=== PATIENT | female | born 1995 | race Caucasian/White ===

== ENCOUNTER → 2021-03-01 16:00 | Outpatient (BNVA) | payer MEDICAID, SELFPAY | PROVIDERS: Family Provider Nurse Practitioner Family; PCP Nurse Practitioner Family; Visit Provider Obstetrics & Gynecology | DX: Z01.419 Encounter for gynecological examination (general) (routine) without abnormal findings (principal) | CPT/HCPCS: 88175 ==

== ENCOUNTER → 2021-12-13 08:15 | Outpatient (BNVA) | payer MEDICAID, SELFPAY | PROVIDERS: PCP Nurse Practitioner Family; Visit Provider Internal Medicine | DX: M05.20 Rheumatoid vasculitis with rheumatoid arthritis of unspecified site (principal); R76.8 Other specified abnormal immunological findings in serum; R79.82 Elevated C-reactive protein (CRP); M79.10 Myalgia, unspecified site; Z11.59 Encounter for screening for other viral diseases; R53.83 Other fatigue; M35.7 Hypermobility syndrome | CPT/HCPCS: 99204 ==

== ENCOUNTER 2021-12-13 10:31 | Outpatient (CLI) | payer MEDICAID, SELFPAY ==
--- NOTE | 2021-12-13 11:17 | XR_ITS ---
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 Comparison: None. Findings: No fractures or dislocations are seen. The soft tissues are unremarkable. The joint space s are normal No periarticular demineralization or calcifications are seen. XR/XR hand RT 2V [id number] Impression: Negative right hand.
--- NOTE | 2021-12-13 11:17 | XR_ITS ---
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 Comparison: None. Findings: No fractures or dislocations are seen. The soft tissues are unremarkable. The joint spaces are normal No periarticular demineralization or calcifications are seen. XR/XR hand LT 2V [id number] Impression: Negative left hand.
[2021-12-13 12:42] LABS: Creatine Phosphokinase 39 U/L (26-192); Magnesium 1.9 mg/dL (1.7-2.3); Phosphorus 3.4 mg/dL (2.5-4.5)
[2021-12-13 12:57] LABS: Vitamin B12 985 pg/mL (232-1245)
[2021-12-13 12:59] LABS: Hepatitis B Core AB, Total Non-Reactive (Nonreactive); Hepatitis B Surface Antigen Non-Reactive (Nonreactive); Hepatitis C Virus Antibody Non-Reactive (Nonreactive)
[2021-12-14 14:23] LABS: Cyclic Citrullinated Peptide >250 UNITS
[2021-12-14 15:18] LABS: Lymes IGG WB <0.90 index
== END 2021-12-13 10:32 | disposition home or self-care (01) ==
LOC: RAD 10:34
PROVIDERS: PCP Internal Medicine; Visit Provider Internal Medicine
DX: M05.20 Rheumatoid vasculitis with rheumatoid arthritis of unspecified site (principal)
CPT/HCPCS: 36415; 73120; 82550; 82607; 83516; 83735; 84100; 84182; 86200; 86235; 86617; 86704; 86803; 87340

== ENCOUNTER → 2021-12-27 14:02 | Outpatient (BNVA) | payer MEDICAID, SELFPAY | PROVIDERS: PCP Internal Medicine; Visit Provider Internal Medicine | DX: R76.8 Other specified abnormal immunological findings in serum (principal); M05.20 Rheumatoid vasculitis with rheumatoid arthritis of unspecified site; M35.7 Hypermobility syndrome; R79.82 Elevated C-reactive protein (CRP) | CPT/HCPCS: 99214 ==

== ENCOUNTER → 2022-01-09 15:37 | Outpatient (BNVA) | payer MEDICAID, SELFPAY | PROVIDERS: PCP Internal Medicine; Visit Provider Obstetrics & Gynecology | DX: R87.610 Atypical squamous cells of undetermined significance on cytologic smear of cervix (ASC-US) (principal); R87.810 Cervical high risk human papillomavirus (HPV) DNA test positive; N84.1 Polyp of cervix uteri | CPT/HCPCS: 81025; 88305 ==

== ENCOUNTER → 2022-01-24 14:56 | Outpatient (BNVA) | payer MEDICAID, SELFPAY | PROVIDERS: PCP Internal Medicine; Visit Provider Obstetrics & Gynecology | DX: R87.610 Atypical squamous cells of undetermined significance on cytologic smear of cervix (ASC-US) (principal); R87.810 Cervical high risk human papillomavirus (HPV) DNA test positive | CPT/HCPCS: 81025; 88305 ==

== ENCOUNTER → 2022-02-13 16:11 | Outpatient (BNVA) | payer MEDICAID, SELFPAY | PROVIDERS: PCP Internal Medicine; Visit Provider Internal Medicine | DX: R79.82 Elevated C-reactive protein (CRP) (principal); G47.30 Sleep apnea, unspecified; R76.8 Other specified abnormal immunological findings in serum; M35.7 Hypermobility syndrome; M05.20 Rheumatoid vasculitis with rheumatoid arthritis of unspecified site; R68.84 Jaw pain; R53.83 Other fatigue | CPT/HCPCS: 80053; 82728; 83540; 84443; 85025; 86480; 99214 ==

== ENCOUNTER → 2022-02-14 10:45 | Outpatient (BNVA) | payer OTHER, SELFPAY | PROVIDERS: PCP Internal Medicine; Visit Provider Social Worker | DX: F43.12 Post-traumatic stress disorder, chronic (principal) | CPT/HCPCS: 90834 ==

== ENCOUNTER → 2022-02-20 15:55 | Outpatient (BNVA) | payer MEDICAID, SELFPAY | PROVIDERS: PCP Internal Medicine; Referring Provider Psychiatry & Neurology Psychiatry; Visit Provider Otolaryngology | DX: H61.22 Impacted cerumen, left ear (principal); M26.623 Arthralgia of bilateral temporomandibular joint; J33.0 Polyp of nasal cavity; J34.89 Other specified disorders of nose and nasal sinuses; J30.9 Allergic rhinitis, unspecified | CPT/HCPCS: 69210; 99204 ==

== ENCOUNTER → 2022-02-21 12:00 | Outpatient (BNVA) | payer OTHER, SELFPAY | PROVIDERS: PCP Internal Medicine; Visit Provider Social Worker | DX: F43.12 Post-traumatic stress disorder, chronic (principal) | CPT/HCPCS: 90834 ==

== ENCOUNTER → 2022-03-07 13:40 | Outpatient (BNVA) | payer OTHER, SELFPAY | PROVIDERS: PCP Internal Medicine; Visit Provider Social Worker | DX: F43.12 Post-traumatic stress disorder, chronic (principal) | CPT/HCPCS: 90834 ==

== ENCOUNTER → 2022-03-14 08:56 | Outpatient (BNVA) | payer MEDICAID, SELFPAY | PROVIDERS: PCP Internal Medicine; Visit Provider Otolaryngology | DX: F43.12 Post-traumatic stress disorder, chronic (principal); J33.9 Nasal polyp, unspecified | CPT/HCPCS: 90834; 99213 ==

== ENCOUNTER → 2022-03-21 11:46 | Outpatient (BNVA) | payer OTHER, SELFPAY | PROVIDERS: PCP Internal Medicine; Visit Provider Social Worker | DX: F43.12 Post-traumatic stress disorder, chronic (principal); F33.2 Major depressive disorder, recurrent severe without psychotic features | CPT/HCPCS: 90791 ==

== ENCOUNTER 2022-03-26 20:00 | Outpatient (CLI) | payer OTHER, SELFPAY | END 2022-03-26 20:01 | disposition home or self-care (01) | LOC: SLEEP 03-27 08:15 | PROVIDERS: PCP Internal Medicine; Visit Provider Family Medicine | DX: G47.10 Hypersomnia, unspecified (principal); R06.83 Snoring; R53.83 Other fatigue | CPT/HCPCS: 95810 ==

== ENCOUNTER → 2022-03-29 12:43 | Outpatient (BNVA) | payer OTHER, SELFPAY | PROVIDERS: PCP Internal Medicine; Visit Provider Social Worker | DX: F43.12 Post-traumatic stress disorder, chronic (principal) | CPT/HCPCS: 90837; 90834 ==

== ENCOUNTER 2022-06-16 21:16 | Emergency (ER) | payer MEDICAID, SELFPAY ==
[2022-06-16 21:18] VITALS: PULSE 89; RESP 16; TEMP 36.8; O2SAT 95; BMI 33.3
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
[2022-06-16] MEDS: acetaminophen 500 mg Tablet 1000 MG PO (23:14)
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
== END 2022-06-17 00:15 | disposition home or self-care (01) ==
PROVIDERS: Emergency Provider Emergency Medicine; PCP Internal Medicine
DX: S93.401A Sprain of unspecified ligament of right ankle, initial encounter (principal); S96.911A Strain of unspecified muscle and tendon at ankle and foot level, right foot, initial encounter; S50.811A Abrasion of right forearm, initial encounter; V89.2XXA Person injured in unspecified motor-vehicle accident, traffic, initial encounter
CPT/HCPCS: 73610; 99283; E0114

== ENCOUNTER → 2022-06-20 13:48 | Outpatient (BNVA) | payer MEDICAID, SELFPAY | PROVIDERS: PCP Family Medicine; Visit Provider Internal Medicine | DX: M05.20 Rheumatoid vasculitis with rheumatoid arthritis of unspecified site (principal); M35.7 Hypermobility syndrome; R76.8 Other specified abnormal immunological findings in serum; R53.83 Other fatigue; R79.82 Elevated C-reactive protein (CRP) | CPT/HCPCS: 80053; 85025; 85651; 86140; 99214 ==

== ENCOUNTER 2022-07-19 08:49 | Outpatient (CLI) | payer MEDICAID, SELFPAY ==
--- NOTE | 2022-07-19 | XR_ITS ---
WS: [id number] Left foot, 2 views, 07/19/2022 Clinical Data: left foot pain Comparison: None. Findings: There is a fracture of the base of the proximal phalanx of the left fifth toe. The remainder the foot shows no other fractures. The joint spaces are normal. The soft tissues are un remarkable. XR/XR foot LT 2V [id number] Impression: Fracture of the proximal phalanx of the left fifth toe.
== END 2022-07-19 08:50 | disposition home or self-care (01) ==
LOC: RAD 08:51
PROVIDERS: PCP Family Medicine; Visit Provider Family Medicine
DX: S92.512A Displaced fracture of proximal phalanx of left lesser toe(s), initial encounter for closed fracture; X58.XXXA Exposure to other specified factors, initial encounter
CPT/HCPCS: 73620

== ENCOUNTER 2022-07-28 17:14 | Emergency (ER) | payer MEDICAID, SELFPAY ==
[2022-07-28 17:17] VITALS: BP 114/80; PULSE 75; RESP 15; TEMP 36.8; O2SAT 98; BMI 32.9
[2022-07-28 17:22] VITALS: BP 115/85; PULSE 79; RESP 16; TEMP 36.6; O2SAT 99
--- NOTE | 2022-07-28 17:33 | ED_ITS ---
HPI - Dizziness General: Chief Complaint: Dizziness Stated Complaint: Dizziness Time Seen by Provider: 07/28/22 17:33 History of Present Illness: HPI Narrative: 27-year-old female comes in today for complaints of dizziness. Patient reports that this afternoon she was at a restaurant getting a salad at the salad bar walking around when she became dizzy and lightheaded. Patient then reported having a headache. Patient appears nontoxic. Patient appears in no pain. Patient denies any blood in vomit or stool. Patient denies any fever. Patient has a history of rheumatoid arthritis and is presently on her menstrual cycle. Associated symptoms: Reports headache(s) and nausea; Denies chest pain Review of Systems General: Reports: 10 or more systems reviewed and unremarkable except in HPI and below Const: Denies: fever(s) Card: Denies: chest pain Resp: Denies: dyspnea GI: Reports: nausea Neuro: Reports: headache(s) and dizziness Tomer/Lymph: Denies: easy bruising or easy bleeding PFSH ED PFSH: Medical History No pertinent past medical history Denies diabetes, asthma, hypertension, seizures, DVT/PE PCP: MY Mosley Rheumatoid arteritis /Mixed connective tissue disorder----diagnosed in December 2021 and she is under the care of porcelain turner Dr. Riggins at [facility] Surgical History S/P section 11/16/2017-----> primary delivery for arrest of dilation at 6 cm, baby ning Enrique, weighing 8 pounds 15-1/2 ounces. Prominent sacral premonitory, inferior extension---Not a good CHARLIE candidate Family History Family/Other Thyroid condition paternal cousin Diabetes paternal aunt Father Hypertension Hyperlipidemia Grandmother Hypertension paternal Stroke maternal Diabetes paternal Grandfather Stroke maternal Denies family history of Colon cancer Ovarian cancer Heart disease Breast cancer Uterine cancer Social History Smoking and tobacco status: never smoked Female Reproductive History: Date of last menstrual period: 05/29/22 Physical Exam Const: COMMON NORMALS: alert HENMT: COMMON NORMALS: normocephalic HEAD & SCALP: normocephalic MOUTH: Normal oral and palatal mucosa present Neck/C-Spine: COMMON NORMALS: full ROM and no meningeal signs Resp: COMMON NORMALS: normal respiratory effort and clear to auscultation bilaterally AUSCULTATION: clear to auscultation bilaterally Cardio: COMMON NORMALS: regular rate and regular rhythm RATE: regular rate RHYTHM: regular rhythm GI: COMMON NORMALS: non-tender Back/Pelvis: COMMON NORMALS: thoracic and lumbar spine normal to inspection Extremity: COMMON NORMALS: no pedal edema Neuro: SENSORIUM/ORIENTATION: Yes alert MENINGEAL SIGNS: Yes no meningeal signs Skin: COMMON NORMALS: turgor normal GENERAL SKIN EXAM: turgor normal Course Vital Signs: Vital signs: Vital Signs Temperature 97.8 F 07/28/22 17:22 Pulse Rate 74 07/28/22 17:45 Respiratory Rate 16 07/28/22 17:22 Blood Pressure 122/67 07/28/22 17:45 Pulse Oximetry 100 07/28/22 17:35 Oxygen Delivery Me thod 07/28/22 17:22 MDM - Dizziness Medical Decision Making 27-year-old female comes in today for complaints of dizziness that occurred when she got up to go get a salad in a restaurant. Patient appears nontoxic. Patient reports improvement of symptoms since arriving to the ER. Vital signs are normal. Negative orthostatic blood pressures. Differential diagnosis includes BPV, anxiety, adverse drug effect, anemia. CBC CMP was unremarkable. CT of the head was normal. EKG showed no significant abnormalities. Believe the patient probably had some mild positional vertigo secondary to probably her medication she takes routinely for her RA. Patient was recommended to monitor for fever or worsening symptoms. Patient reported understanding and agreed to plan. Lab Data : 07/28/22 17:53 07/28/22 17:[address] 07/28/22 17:50 IMPRESSION: 1. No acute intracranial abnormality. 2. Probably chronic pansinusitis with enlargement of the nasal turbinates and erosion of the lamina papyracea bilaterally. Laboratory Results WBC 9.7 10^3/uL (4.0-10.0) 07/28/22 17:53 RBC 4.43 10^6/uL (4.1-5.3) 07/28/22 17:53 Hgb 12.6 g/dL (11.5-15.3) 07/28/22 17:53 Hct 38.2 % (37.0-47.0) 07/28/22 17:53 MCV 86.2 fl (81-99) 07/28/22 17:53 MCH 28.4 pg (28.0-34.0) 07/28/22 17:53 MCHC 33.0 g/dL (30.0-36.0) 07/28/22 17:53 RDW 14.2 % (12.1-15.1) 07/28/22 17:53 Plt Count 318 10^3/cmm (130-400) 07/28/22 17:53 MPV 10.8 fL (7.4-10.4) H 07/28/22 17:53 Neut % (Auto) 66.3 % 07/28/22 17:53 Lymph % (Auto) 25.6 % 07/28/22 17:53 [place] % (Auto) 5.3 % 07/28/22 17:53 Eos % (Auto) 1.7 % 07/28/22 17:53 Baso % (Auto) 0.5 % 07/28/22 17:53 Neut # (Auto) 6.40 10^3/uL (1.8-7.7) 07/28/22 17:53 Lymph # (Auto) 2.5 10^3/uL (0.8-4.8) 07/28/22 17:53 [place] # (Auto) 0.5 10^3/uL (0.2-0.9) 07/28/22 17:53 Eos # (Auto) 0.2 10^3/uL (0.0-0.8) 07/28/22 17:53 Baso # (Auto) 0.1 10^3/uL (0.0-0.1) 07/28/22 17:53 Nucleated RBC % (auto) 0 % 07/28/22 17:53 Nucleated RBCs # 0.0 /100WBC 07/28/22 17:53 Sodium 133 mmol/L (136-145) L 07/28/22 17:53 Potassium 3.7 mmol/L (3.5-5.1) 07/28/22 17:53 Chloride 101 mmol/L (98-107) 07/28/22 17:53 Carbon Dioxide 24 mmol/L (22-29) 07/28/22 17:53 Anion Gap 11.7 (5-19) 07/28/22 17:53 BUN 13 mg/dL (6-20) 07/28/22 17:53 Creatinine 0.6 mg/dL (0.5-0.9) 07/28/22 17:53 GFR Calculation 119.9 mL/min (90-130) 07/28/22 17:53 Glucose 83 mg/dL (65-115) 07/28/22 17:53 Calculated Osmolality 275 mOsm/kg (285-295) L 07/28/22 17:53 Calcium 8.9 mg/dL (8.5-10.5) 07/28/22 17:53 Total Bilirubin 0.2 mg/dL (0.15-1.2) 07/28/22 17:53 AST 16 U/L (0-32) 07/28/22 17:53 ALT 14 U/L (0-33) 07/28/22 17:53 Alkaline Phosphatase 86 U/L (35-105) 07/28/22 17:53 Total Protein 7.3 g/dL (6.6-8.7) 07/28/22 17:53 Albumin 3.8 g/dL (3.5-5.2) 07/28/22 17:53 Globulin 3.5 g/dL (1.3-4.6) 07/28/22 17:53 Lipase 17 U/L (13-60) 07/28/22 17:53 HCG, Qual Negative (Negative) 07/28/22 18:06 Urine Color Light yellow (Yellow) 07/28/22 19:35 Urine Appearance Clear (CLEAR) 07/28/22 19:35 Urine pH 7 (5-7) 07/28/22 19:35 Ur Specific [place] 1.005 (1.005-1.030) 07/28/22 19:35 Urine Protein Neg (Negative) 07/28/22 19:35 Urine Glucose (UA) Norm (Normal) 07/28/22 19:35 Urine Ketones Negative (Negative) 07/28/22 19:35 Urine Blood Trace (Negative) H 07/28/22 19:35 Urine Nitrate Negative (Negative) 07/28/22 19:35 Urine Bilirubin Neg (Negative) 07/28/22 19:35 Urine Urobilinogen Neg mg/dL (Negative) 07/28/22 19:35 Ur Leukocyte Esterase Negative (Negative) 07/28/22 19:35 Amorphous Sediment Not Reportable 07/28/22 19:35 EKG Data EKG 1: EKG interpretation date: 07/28/22 EKG interpretation time: 17:53 Prior EKG tracings: not available for review Interpretation: EKG shows a sinus rhythm with a regular rate at [address] elevation or ectopy was noted on the exam. Discharge Plan Discharge Patient Disposition: Home Clinical Impression: Benign paroxysmal positional vertigo Qualifiers: Laterality: unspecified laterality Qualified Code(s): H81.10 - Benign paroxysmal vertigo, unspecified ear Condition: Stable Prescriptions: No Action Zyrtec 10 mg capsule 10 mg PO DAILY acetaminophen [Tylenol Extra Strength] 500 mg tablet 500 mg PO BID PRN ashwaganda PO turmeric 400 mg capsule PO as-2-yyc-epa-fish oil-vit D3 [[place]-3 + Vitamin D3] PO collagen pep PO Hair,Skin and Nails Tablet 1 tab PO DAILY norethindrone-e.estradiol-iron [Junel FE 10/26 (28)] 1 mg-20 mcg (21)/75 mg (7) tablet 1 tab PO DAILY Qty: 84 0RF folic acid 1 mg tablet 1 mg PO DAILY Qty: 90 1RF meloxicam 15 mg tablet 15 mg PO DAILY Qty: 30 3RF hydroxychloroquine 200 mg tablet 200 mg PO BID Qty: 60 3RF prednisone 5 mg tablet 5 mg PO DAILY PRN (Reason: flares) Qty: 60 0RF Rx Instructions: 1-2 as needed Xeljanz XR 11 mg tablet extended release 24 hr 11 mg PO DAILY Qty: 30 5RF Discharge Orders: Discharge ED (Routine); Ordered 07/28/22 Ordered By: Jossue Nayak Referrals: Albania Rivers DO [Primary Care Provider] - Discharge Diet: Usual diet Discharge Activity: Increase activity as tolerated Patient Instructions: Dizziness (ED) Activity Restrictions/Additional Instructions: Drink plenty of fluids. Change positions slowly. Follow-up with primary care for further evaluation and treatment. Return to ER for new concerns or worsening symptoms such as inability to hold fluids down, blood in vomit or stool, or fever greater than 100.4. Coding Level of Care Code ED Computer Operations Supervisor for Chg Fwd Exam Comprehensive
[2022-07-28 17:35] VITALS: BP 115/85; PULSE 82; O2SAT 100
[2022-07-28 17:45] VITALS: BP 116/76; BP 122/67; BP 122/83; PULSE 74; PULSE 83; PULSE 86
--- NOTE | 2022-07-28 17:47 | ECG_ITS ---
[facility] Test Date: 2022-07-28 Pat Name: Carlene Guevara Department: Room: Gender: Female Base Draw Operator: : 1995 Requested By: Jossue Jara Order Number: [id number] Liv MD: Massiel Garrison M.D. Measurements Intervals [place] Rate: 78 P: 24 ME: 136 QRS: -16 QRSD: 94 T: 32 QT: 388 QTc: 443 Interpretive Statements SINUS RHYTHM LOW QRS VOLTAGE IN PRECORDIAL LEADS [QRS DEFLECTION < 1.0 mV IN CHEST LEADS] No previous ECG available for comparison Electronically Signed On 07-30-2022 23:00:41 CDT by Massiel Garrison M.D. [id number]
--- NOTE | 2022-07-28 17:50 | CTR_ITS ---
PROCEDURE INFORMATION: Exam: CT Head Without Contrast Exam date and time: 07/28/2022 6:06 PM Age: 27 years old Clinical indication: Pain; Headache not specified; Additional info: Headache, dizziness TECHNIQUE: Imaging protocol: Computed tomography of the head without contrast. Radiation optimization: All CT scans at this facility use at least one of these dose optimization techniques: automated exposure control; mA and/or kV adjustment per patient size (includes targeted exams where dose is matched to clinical indication); or iterative reconstruction. COMPARISON: No relevant prior studies available. RADIATION DOSE METRICS: Total DLP (mGy-cm): 1069.68 FINDINGS: Brain: The brain is unremarkable. There is no mass effect or significant white matter disease. There is no acute intracranial hemorrhage. Cerebral ventricles: There is no significant ventricular dilation. The basal cisterns are unremarkable. Paranasal sinuses: There is near complete opacification of the visualized paranasal sinuses and enlargement of the nasal turbinates with dehiscence of the anterior aspect of the medial orbital mancuso bilaterally. Mastoid air cells: The mastoid air cells are clear. Orbital cavities: Globes are intact. Orbital contents are normal. Bones/joints: The calvarium is intact. Soft tissues: The visible extracranial soft tissues are unremarkable. CT/CT head wo con* [id number] IMPRESSION: 1. No acute intracranial abnormality. 2. Probably chronic pansinusitis with enlargement of the nasal turbinates and erosion of the lamina papyracea bilaterally.
[2022-07-28 18:02] LABS: Basophils # 0.1 10^3/uL (0.0-0.1); Basophils % 0.5 %; Eosinophils # 0.2 10^3/uL (0.0-0.8); Eosinophils % 1.7 %; Hematocrit 38.2 % (37.0-47.0); Hemoglobin 12.6 g/dL (11.5-15.3); Lymphocytes # 2.5 10^3/uL (0.8-4.8); Lymphocytes % 25.6 %; Mean Corpuscular Hemoglobin 28.4 pg (28.0-34.0); Mean Corpuscular Volume 86.2 fl (81-99); Mean Platelet Volume 10.8 fL (7.4-10.4); Monocytes # 0.5 10^3/uL (0.2-0.9); Monocytes % 5.3 %; Neutrophils % 66.3 %; Nucleated Red Blood Cells % 0 %; Platelet Count 318 10^3/cmm (130-400); Red Blood Count 4.43 10^6/uL (4.1-5.3); Red Cell Distribution Width 14.2 % (12.1-15.1); White Blood Count 9.7 10^3/uL (4.0-10.0)
[2022-07-28 18:33] LABS: Alanine Aminotransferase 14 U/L (0-33); Albumin Level 3.8 g/dL (3.5-5.2); Alkaline Phosphatase 86 U/L (35-105); Anion Gap 11.7 (5-19); Aspartate Amino Transferase 16 U/L (0-32); Blood Urea Nitrogen 13 mg/dL (6-20); Calcium 8.9 mg/dL (8.5-10.5); Carbon Dioxide 24 mmol/L (22-29); Chloride 101 mmol/L (98-107); Globulin 3.5 g/dL (1.3-4.6); Glomerular Filtration Rate 119.9 mL/min (90-130); Glucose 83 mg/dL (65-115); Lipase 17 U/L (13-60); Osmolality Calculated 275 mOsm/kg (285-295); Potassium 3.7 mmol/L (3.5-5.1); Sodium 133 mmol/L (136-145); Total Bilirubin 0.2 mg/dL (0.15-1.2); Total Protein 7.3 g/dL (6.6-8.7)
[2022-07-28 18:35] LABS: HCG, Serum Qual Negative (Negative)
--- NOTE | 2022-07-28 19:09 | PC.NURSE ---
Report given to XENIA Gustafson to assume care
[2022-07-28 19:39] LABS: Add Urine Microscopic? YES; Bilirubin Urine Neg (Negative); Blood Urine Trace (Negative); Glucose Urine UA Norm (Normal); Ketones Urine Negative (Negative); Leukocyte Esterase Urine Negative (Negative); Nitrate Urine Negative (Negative); Protein Urine Neg (Negative); Specific Gravity, Urine 1.005 (1.005-1.030); Urine Appearance Clear (CLEAR); Urine Color Light Yellow (Yellow); Urobilinogen Urine Neg (Negative); pH Urine 7 (5-7)
[2022-07-28 19:59] VITALS: BP 108/71; PULSE 71; RESP 18; O2SAT 97
[2022-07-28 19:59] LABS: Add Urine Culture? No; RBC Urine 0-4 /hpf (0-2); Squamous Epithelial Cell Urine 0-4 /hpf (0-5); WBC Urine 0-4 /hpf (0-5)
== END 2022-07-28 20:00 | disposition home or self-care (01) ==
PROVIDERS: Emergency Provider Nurse Practitioner Family; PCP Family Medicine
DX: H81.10 Benign paroxysmal vertigo, unspecified ear (principal)
CPT/HCPCS: 70450; 80053; 81001; 83690; 84703; 85025; 93005; 99285

== ENCOUNTER → 2022-10-05 09:00 | Outpatient (BNVA) | payer MEDICAID, SELFPAY | PROVIDERS: PCP Family Medicine; Visit Provider Obstetrics & Gynecology | DX: N92.6 Irregular menstruation, unspecified (principal) | CPT/HCPCS: 83036; 83525; 84443 ==

== ENCOUNTER → 2022-10-12 09:45 | Outpatient (BNVA) | payer MEDICAID, SELFPAY | PROVIDERS: PCP Family Medicine; Visit Provider Internal Medicine | DX: M05.20 Rheumatoid vasculitis with rheumatoid arthritis of unspecified site (principal); M77.40 Metatarsalgia, unspecified foot; M35.7 Hypermobility syndrome; R79.82 Elevated C-reactive protein (CRP); R76.8 Other specified abnormal immunological findings in serum | CPT/HCPCS: 36415; 85025; 85651; 86140 ==

== ENCOUNTER → 2022-11-21 08:48 | Outpatient (BNVA) | payer OTHER, SELFPAY | PROVIDERS: PCP Family Medicine; Visit Provider Podiatrist Foot & Ankle Surgery | DX: M79.671 Pain in right foot (principal); M79.672 Pain in left foot | CPT/HCPCS: 73630 ==

== ENCOUNTER → 2022-12-06 07:24 | Outpatient (BNVA) | payer OTHER, SELFPAY | PROVIDERS: PCP Family Medicine; Visit Provider Nurse Practitioner Women's Health | DX: Z34.90 Encounter for supervision of normal pregnancy, unspecified, unspecified trimester (principal) | CPT/HCPCS: 81000; 81025; 87086 ==

== ENCOUNTER → 2022-12-12 09:20 | Outpatient (BNVA) | payer MEDICAID, SELFPAY | PROVIDERS: PCP Family Medicine; Visit Provider Nurse Practitioner Women's Health | DX: Z34.90 Encounter for supervision of normal pregnancy, unspecified, unspecified trimester (principal); Z98.891 History of uterine scar from previous surgery | CPT/HCPCS: 80307; 84315; 84443; 85027; 86592; 86762; 86803; 86850; 86900; 87086; 87340; 87806 ==

== ENCOUNTER → 2022-12-26 13:50 | Outpatient (BNVA) | payer MEDICAID, SELFPAY | PROVIDERS: PCP Family Medicine; Visit Provider Obstetrics & Gynecology | DX: Z34.90 Encounter for supervision of normal pregnancy, unspecified, unspecified trimester (principal); R82.90 Unspecified abnormal findings in urine | CPT/HCPCS: 84315; 87086 ==

== ENCOUNTER → 2023-01-09 13:45 | Outpatient (BNVA) | payer MEDICAID, SELFPAY | PROVIDERS: PCP Family Medicine; Visit Provider Obstetrics & Gynecology | DX: Z34.90 Encounter for supervision of normal pregnancy, unspecified, unspecified trimester (principal) | CPT/HCPCS: 84315; 87086; 87491; 87591; 87624; 87661 ==

== ENCOUNTER → 2023-02-07 10:40 | Outpatient (BNVA) | payer OTHER, SELFPAY | PROVIDERS: PCP Family Medicine; Visit Provider Obstetrics & Gynecology | DX: Z34.90 Encounter for supervision of normal pregnancy, unspecified, unspecified trimester (principal); R82.90 Unspecified abnormal findings in urine | CPT/HCPCS: 80307; 81000; 87086 ==

== ENCOUNTER 2023-02-28 10:54 | Outpatient (CLI) | payer MEDICAID, SELFPAY ==
[2023-02-28 11:29] LABS: Basophils # 0.1 10^3/uL (0.0-0.1); Basophils % 0.3 %; Eosinophils # 0.2 10^3/uL (0.0-0.8); Eosinophils % 1.6 %; Hematocrit 36.3 % (37.0-47.0); Hemoglobin 12.2 g/dL (11.5-15.3); Lymphocytes # 1.7 10^3/uL (0.8-4.8); Lymphocytes % 11.8 %; Mean Corpuscular HGB Conc 33.6 g/dL (30.0-36.0); Mean Corpuscular Hemoglobin 29.3 pg (28.0-34.0); Mean Corpuscular Volume 87.3 fl (81-99); Mean Platelet Volume 10.2 fL (7.4-10.4); Monocytes # 0.7 10^3/uL (0.2-0.9); Monocytes % 4.8 %; Neutrophils # 11.64 10^3/uL (1.8-7.7); Neutrophils % 80.3 %; Nucleated Red Blood Cells % 0 %; Platelet Count 306 10^3/cmm (130-400); Red Blood Count 4.16 10^6/uL (4.1-5.3); Red Cell Distribution Width 13.5 % (12.1-15.1); White Blood Count 14.5 10^3/uL (4.0-10.0)
[2023-02-28 11:46] LABS: Alanine Aminotransferase 7 U/L (0-33); Albumin Level 3.4 g/dL (3.5-5.2); Alkaline Phosphatase 69 U/L (35-105); Anion Gap 13.5 (5-19); Aspartate Amino Transferase 10 U/L (0-32); Blood Urea Nitrogen 7 mg/dL (6-20); Carbon Dioxide 22 mmol/L (22-29); Chloride 104 mmol/L (98-107); Globulin 3.4 g/dL (1.3-4.6); Glomerular Filtration Rate 146.9 mL/min (90-130); Glucose 82 mg/dL (65-115); Osmolality Calculated 277 mOsm/kg (285-295); Potassium 4.5 mmol/L (3.5-5.1); Sodium 135 mmol/L (136-145); Total Bilirubin 0.2 mg/dL (0.15-1.2); Total Protein 6.8 g/dL (6.6-8.7)
[2023-02-28 11:53] LABS: Erythrocyte Sedimentation Rate 28 mm/hr (0-15)
== END 2023-02-28 10:55 | disposition home or self-care (01) ==
LOC: LAB 11:01
PROVIDERS: PCP Family Medicine; Visit Provider Internal Medicine
DX: M05.20 Rheumatoid vasculitis with rheumatoid arthritis of unspecified site (principal)
CPT/HCPCS: 36415; 80053; 85025; 85651; 86140

== ENCOUNTER → 2023-03-15 08:30 | Outpatient (BNVA) | payer OTHER, SELFPAY | PROVIDERS: PCP Family Medicine; Visit Provider Obstetrics & Gynecology | DX: Z34.90 Encounter for supervision of normal pregnancy, unspecified, unspecified trimester (principal); R82.90 Unspecified abnormal findings in urine; Z3A.21 21 weeks gestation of pregnancy | CPT/HCPCS: 80307; 81000; 87086 ==

== ENCOUNTER → 2023-04-04 14:49 | Outpatient (BNVA) | payer MEDICAID, SELFPAY | PROVIDERS: PCP Family Medicine; Visit Provider Obstetrics & Gynecology | DX: Z34.90 Encounter for supervision of normal pregnancy, unspecified, unspecified trimester (principal) | CPT/HCPCS: 80307; 84315 ==

== ENCOUNTER → 2023-05-02 10:17 | Outpatient (BNVA) | payer MEDICAID, SELFPAY | PROVIDERS: PCP Family Medicine; Visit Provider Obstetrics & Gynecology | DX: Z34.90 Encounter for supervision of normal pregnancy, unspecified, unspecified trimester (principal); R82.90 Unspecified abnormal findings in urine | CPT/HCPCS: 82950; 84315; 85025; 87086 ==

== ENCOUNTER 2023-05-05 04:39 | Emergency (ER) | payer MEDICAID, SELFPAY ==
[2023-05-05 04:42] VITALS: BP 125/87; PULSE 101; RESP 18; TEMP 36.6; O2SAT 97; BMI 35.9
[2023-05-05 05:16] VITALS: BP 113/59; PULSE 95; RESP 18; O2SAT 95
[2023-05-05 05:37] VITALS: RESP 18
[2023-05-05] MEDS: oxyCODONE-APAP 5-325 mg Tablet 2 TAB PO (05:37)
[2023-05-05] MEDS: predniSONE 20 mg Tablet PO (05:37)
--- NOTE | 2023-05-05 05:38 | W.ED.EXTPRO ---
HPI - Extremity Problem General: Chief complaint: Extremity Injury, Lower Stated complaint: right leg pain/28 weeks Time Seen by Provider: 05/05/23 05:05 Source: patient History of Present Illness: 28-year-old female who is 28 weeks . She presents with a flare of her connective tissue disease . She is experiencing a left groin pain, and has been for the past 24 hours or so. She has been unable to sleep due to the pain. No paresthesias. No increased swelling. No redness or warmth. She notes that this is a frequent, and common presenting symptom for her chronically. Usually the pain goes away after several hours, but it has not at this time. She tried Tylenol which did not seem to help much. No chest discomfort, no shortness of breath. MD Complaint: extremity pain Onset (ago): hour(s) Pain Consistency: constant Location: left and lower extremity Quality: stabbing and aching Radiation: none Relieving factors: nothing Associated symptoms: Reports arthralgias and myalgias; Deny chest pain, fever(s), rash or short of breath Context: other Review of Systems Const: Denies: fever(s) ENMT: Denies: throat pain Card: Denies: chest pain Resp: Denies: dyspnea GI: Reports: vomiting (1 time last night); Denies: abdominal pain : Denies: flank pain Musc: Denies: back pain Skin/Breast: Denies: rash PFSH ED PFSH: Medical History Anti-SOURCE INSPECTOR antibodies present Irregular menses No pertinent past medical history Denies diabetes, asthma, hypertension, seizures, DVT/PE PCP: [facility] 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 Riggins at [facility] [place] Surgical History S/P section 11/16/2017-----> primary delivery for arrest of dilation at 6 cm, baby boy Klaus, weighing 8 pounds 15-1/2 ounces. Prominent sacral premonitory, inferior extension---Not a good CHARLIE candidate Family History Family/Other Thyroid condition paternal cousin Diabetes paternal aunt Father Hypertension Hyperlipidemia Grandmother Hypertension paternal Stroke maternal Diabetes paternal Grandfather Stroke maternal Denies family history of Colon cancer Ovarian cancer Heart disease Breast cancer Uterine cancer Social History Substance/Drug Use: unknown Physical Exam Const: COMMON NORMALS: no acute distress GENERAL APPEARANCE: cooperative; not ill appearing and not frail appearing HENMT: COMMON NORMALS: normocephalic, atraumatic and Normal external nose present HEAD & SCALP: normocephalic and atraumatic FACE & SINUS: normal facial exam and face symmetric NOSE: Normal external nose present Eye: COMMON NORMALS: Equal, round and reactive pupils present and EOMs intact bilaterally PUPIL: Yes Equal, round and reactive pupils present Neck/C-Spine: GENERAL: Yes trachea midline Chest: CHEST: Yes Symmetrical chest wall rise Resp: COMMON NORMALS: normal respiratory effort, No retractions, No use of accessory muscles and clear to auscultation bilaterally AUSCULTATION: clear to auscultation bilaterally Cardio: COMMON NORMALS: regular rate and regular rhythm RATE: regular rate RHYTHM: regular rhythm GI: PALPATION: Yes Other GI palpation findings present (Gravid) Extremity: COMMON NORMALS: no pedal edema Neuro: CARLO COMA SCALE: document GCS findings Carlo coma scale eye opening: Spontaneous [place] coma scale verbal response: Orientated Carlo coma scale motor response: Obey commands [place] coma scale total score: 15 SENSORY EXAM: Yes extremities (intact) Psych: COMMON NORMALS: speech normal SPEECH: Yes normal speech Skin: COMMON NORMALS: no rashes or lesions noted GENERAL SKIN EXAM: no rashes or lesions noted Course Vital Signs: Vital signs: Vital Signs Temperature 97.8 F 05/05/23 04:42 Pulse Rate 101 H 05/05/23 04:42 Respiratory Rate 18 05/05/23 05:37 Blood Pressure 125/87 05/05/23 04:42 Pulse Oximetry 97 05/05/23 04:42 MDM - Extremity (Nontraumatic) Medical Decision Making Concerning that the patient is 28 weeks , has a chronic inflammatory condition, and has thigh pain. Although the thigh pain is well localized, reproducible, not diffuse, and is without edema, redness, or warmth. We will treat with pain medication and a tapering dose of steroids. Follow-up with rheumatology this coming week. If pain does not resolve quickly, she knows to return for ultrasound to rule out DVT of the lower extremity although she has no secondary signs of this on examination this morning. Discharge Plan Discharge Patient Disposition: Home Clinical Impression: Mixed connective tissue disease Condition: Stable Prescriptions: New hydrocodone-acetaminophen 5-325 mg tablet 1 tab PO Q8H PRN (Reason: pain) Qty: 7 0RF prednisone 5 mg tablet See Rx Instructions .ROUTE .COMPLEX Qty: 21 0RF Rx Instructions: 4 POqD x3d, 2 [id number], 1 [id number] No Action Zyrtec 10 mg capsule 10 mg PO DAILY acetaminophen [Tylenol Extra Strength] 500 mg tablet 500 mg PO BID PRN [id number]-[id number] oil-vit D3 [Supai-3 + Vitamin D3] PO collagen pep PO Hair,Skin and Nails Tablet 1 tab PO DAILY diclofenac sodium [Arthritis Pain (diclofenac)] 1 % gel 4 g topical QID Qty: 100 2RF Rx Instructions: apply to single knee, ankle, foot; for foot includes sole/toes/top of foot folic acid 1 mg tablet 1 mg PO DAILY Qty: 90 1RF hydroxychloroquine 200 mg tablet 200 mg PO BID Qty: 60 3RF Discharge Orders: Discharge ED (Routine); Ordered 05/05/23 Ordered By: Tray Murray Referrals: Candida Riggins MD [Physician] - Albania Rivers DO [Primary Care Provider] - Patient Instructions: Arthralgia (ED), Opioid Safety, Pain Management Activity Restrictions/Additional Instructions: Medications as directed. Call or message her freight sorter tomorrow, and let them know you were seen here. They may have more specific recommendations. If pain worsens, or does not resolve quickly, return. Return also for worsening swelling to the leg, shortness of breath, chest discomfort, or any other concerning symptoms. Coding Level of Care Code ED Signal Maintenance Technician for Joe Paiz
[2023-05-05 05:51] VITALS: BP 106/55; PULSE 95; RESP 18; O2SAT 96
== END 2023-05-05 05:52 | disposition home or self-care (01) ==
PROVIDERS: Emergency Provider Emergency Medicine; PCP Family Medicine
DX: O99.891 Other specified diseases and conditions complicating pregnancy (principal); M35.1 Other overlap syndromes; Z3A.28 28 weeks gestation of pregnancy
CPT/HCPCS: 99283; J7512

== ENCOUNTER → 2023-05-15 10:43 | Outpatient (BNVA) | payer MEDICAID, SELFPAY | PROVIDERS: PCP Family Medicine; Visit Provider Obstetrics & Gynecology | DX: Z34.90 Encounter for supervision of normal pregnancy, unspecified, unspecified trimester (principal) | CPT/HCPCS: 80307; 81000 ==

== ENCOUNTER → 2023-05-29 13:20 | Outpatient (BNVA) | payer OTHER, SELFPAY | PROVIDERS: PCP Family Medicine; Visit Provider Obstetrics & Gynecology | DX: Z34.90 Encounter for supervision of normal pregnancy, unspecified, unspecified trimester (principal); R82.5 Elevated urine levels of drugs, medicaments and biological substances | CPT/HCPCS: 80307; 81000 ==

== ENCOUNTER → 2023-06-12 10:46 | Outpatient (BNVA) | payer MEDICAID, SELFPAY | PROVIDERS: PCP Family Medicine; Visit Provider Nurse Practitioner Women's Health | DX: O26.899 Other specified pregnancy related conditions, unspecified trimester (principal); R82.5 Elevated urine levels of drugs, medicaments and biological substances; R82.71 Bacteriuria; Z67.91 Unspecified blood type, Rh negative; Z3A.00 Weeks of gestation of pregnancy not specified | CPT/HCPCS: 80307; 81000; 86850 ==

== ENCOUNTER → 2023-06-26 11:05 | Outpatient (BNVA) | payer OTHER, SELFPAY | PROVIDERS: PCP Family Medicine; Visit Provider Obstetrics & Gynecology | DX: Z34.90 Encounter for supervision of normal pregnancy, unspecified, unspecified trimester (principal) | CPT/HCPCS: 80307; 81000; 87081 ==

== ENCOUNTER → 2023-07-03 10:54 | Outpatient (BNVA) | payer OTHER, SELFPAY | PROVIDERS: PCP Family Medicine; Visit Provider Obstetrics & Gynecology | DX: Z34.90 Encounter for supervision of normal pregnancy, unspecified, unspecified trimester (principal) | CPT/HCPCS: 80307; 81000 ==

== ENCOUNTER → 2023-07-10 08:18 | Outpatient (BNVA) | payer OTHER, SELFPAY | PROVIDERS: PCP Family Medicine; Visit Provider Obstetrics & Gynecology | DX: Z34.90 Encounter for supervision of normal pregnancy, unspecified, unspecified trimester (principal) | CPT/HCPCS: 81000 ==

== ENCOUNTER → 2023-07-17 12:00 | Outpatient (BNVA) | payer MEDICAID, SELFPAY | PROVIDERS: PCP Family Medicine; Visit Provider Obstetrics & Gynecology | DX: Z34.90 Encounter for supervision of normal pregnancy, unspecified, unspecified trimester (principal) | CPT/HCPCS: 81000 ==

== ENCOUNTER 2023-07-18 04:34 | Inpatient (IN) | payer MEDICAID, SELFPAY ==
[2023-07-18] VITALS (119 sets, daily range): BP systolic 80–138; BP diastolic 28–90; PULSE 80–121; RESP 16; TEMP 35.4–36.4; O2SAT 88–100; BMI 38.6
[2023-07-18 04:23] LABS: Nitrazine Paper, PH Positive
[2023-07-18 05:07] LABS: Basophils # 0.1 10^3/uL (0.0-0.1); Basophils % 0.4 %; Eosinophils # 0.1 10^3/uL (0.0-0.8); Hematocrit 36.8 % (36-47); Lymphocytes # 2.5 10^3/uL (0.8-4.8); Mean Corpuscular HGB Conc 33.4 g/dL (30-55); Mean Corpuscular Volume 86.8 fl (85-98); Mean Platelet Volume 11.1 fL (7.4-10.4); Monocytes # 0.7 10^3/uL (0.2-0.9); Monocytes % 5.2 %; Neutrophils # 10.18 10^3/uL (1.8-7.7); Neutrophils % 73.2 %; Nucleated Red Blood Cells % 0 %; Platelet Count 250 10^3/cmm (157-399); Red Blood Count 4.24 10^6/uL (3.85-5.65); Red Cell Distribution Width 14.9 % (12.1-15.1); White Blood Count 13.93 10^3/uL (3.29-11.43)
[2023-07-18 06:53] LABS: Amphetamines Screen Urine Negative (Negative); Barbiturates Screen Urine Negative (Negative); Benzodiazepines Screen Urine Negative (Negative); Cocaine Screen Urine Negative (Negative); Opiate Screen Urine Negative (Negative); PCP Screen Urine Negative (Negative); THC Screen Urine Negative (Negative)
--- NOTE | 2023-07-18 08:13 | PM.OPHPUD ---
Labor & Delivery H&P Update Date of Procedure: July 18, 2023 Date H&P Performed: 07/17/23 H&P update information: I have reviewed H&P completed within last 30 days, I have examined patient prior to procedure and Changes to prior documentation as noted here (/25%/-4/vx, PROM) Admission Diagnosis: Term Premature rupture of memebranes Preop diagnosis: term , premature rupture of membranes Planned procedure: Trial of labor after , vaginal after
[2023-07-18] MEDS: dextrose 5%-lactated ringers 1,000 ML 125 ML IV (15:19)
[2023-07-18] MEDS: oxytocin 30 UNIT/500 ML BAG IV (15:20)
--- NOTE | 2023-07-18 18:46 | PM.PN ---
Subjective Subjective: 28yo female at 39.1 wk IUP admitted by Dr Nicolas with SROM desiring . Pt tolerating contractions well. CHARLIE reviewed and plan for c/s if NRFM occurs. Pt understands. Vitals/I&O/Wt Last Vital Signs Temp 97.3 F L 07/18/23 15:18 Pulse 96 07/18/23 18:22 Resp 16 07/18/23 16:00 BP 118/68 07/18/23 18:22 O2 Del Method Room Air 07/18/23 05:06 Weight last 48 hrs Weight 98.883 kg Physical Exam Back/Pelvis: OTHER: Cx- 3-4cm/50%/-3 vtx clear fluid noted. Data 07/18/23 04:54 A&P Assessment and plan (1) Supervision of normal : 39.1 wk IUP (2) History of : 1. 28yo at 39 wk desiring BVAC 2. SROM 3. Hx of Macrosomia (9lb)- failure to progress. (3) Rh negative status during : Plan 1. CHARLIE for (pt understands hx of arrest of descent possibly from pelvis with prominent sacral promonitory-bilateral extension, in which she was told she was not a good candidate for . Attestations Medical Necessity Statement*: Management of CHARLIE for , and repeat c/s if indicated. Coding Level of Care Code Acute Code for Chg Fwd Diagnoses Supervision of normal Z34.90 History of Z98.891 Rh negative status during O26.899; Z67.91
[2023-07-18] MEDS: lactated ringers 1,000 ML 999 ML IV ×2 (19:20→20:15)
[2023-07-18] MEDS: ampicillin 2,000 MG in sodium chloride 0.9% (plus) 50 ML 100 MG IV (20:04)
--- NOTE | 2023-07-18 20:20 | P.ANESASSM_ITS ---
Pre-Anesthetic Assessment Height/Weight: Height 1.6 m Weight 98.883 kg Temp Pulse Resp BP Pulse Ox O2 Del Method 97.5 F L 107 H 16 99/71 99 Room Air 07/18/23 20:08 07/18/23 20:31 07/18/23 16:00 07/18/23 20:31 07/18/23 20:29 07/18/23 05:06 Preop Diagnosis: term , premature rupture of membranes labor epidural Familial anesthetic complications: none Was Beta Alena taken within 24 hours: N/A Was Clonidine taken within 24 hours: N/A Social No alcohol and No tobacco Exam alert and oriented x 3 Airway Submandibular: within normal limits Cervical ROM: within normal limits Mallampati: Class II Dentition: full (poor dentition) Pulmonary None reported CV/HEM None reported None reported Hepatic None reported GI None reported Metabolic None reported Musc/skel Rheumatoid Arthritis connective tissue disorder per patient Neuropsych None reported Anesthetic Plan ASA status: 3 Anesthesia: Anesthesia Evaluation and Regional (specify below) Medications/Allergies Home Medications Medication Instructions Recorded Confirmed Last Taken Type cetirizine 10 mg capsule (Zyrtec) 10 mg PO DAILY 04/20/20 07/17/23 Unknown History acetaminophen 500 mg tablet 500 mg PO BID PRN 12/13/21 07/17/23 Unknown History (Tylenol Extra Strength) collagen pep PO 02/14/22 07/17/23 Unknown History multivitamin with minerals 1 tab PO DAILY 02/14/22 07/17/23 Unknown History (Hair,Skin and Nails tablet) [id number]-epa-fish oil-vit D3 PO 02/14/22 07/17/23 Unknown History [[place]-3 Plus Vitamin D3] diclofenac sodium 1 % topical gel 4 g topical QID #100 grams 10/12/22 07/17/23 Unknown Rx (Arthritis Pain (diclofenac)) folic acid 1 mg tablet 1 mg PO DAILY #90 tabs 01/07/23 07/17/23 Unknown Rx hydroxychloroquine 200 mg tablet 200 mg PO BID #60 tabs 05/03/23 07/17/23 Unknown Rx methylprednisolone 4 mg tablets in 4 mg PO DAILY #21 ea 05/29/23 07/17/23 Unknown Rx a dose pack (Medrol (Suraj)) rho(D) immune globulin 1,500 unit 1,500 unit IM ONCE #1 ea 06/12/23 07/17/23 Unknown Rx (300 mcg) intramuscular syringe (RhoGAM Ultra-Filtered PLUS) Allergies Allergy/AdvReac Type Severity Reaction Status Date / Time No Known Allergies Allergy Verified 07/17/23 11:13 Current Medications Generic Name Dose Route Start Last Admin Trade Name Freq PRN Reason Stop Dose Admin Dextrose/Lactated Ringer's 1,000 mls @ 125 mls/hr 07/18/23 04:00 07/18/23 15:19 Dextrose 5%-Lactated Ringers IV 125 mls/hr .Q8H PATTI Administration Oxytocin 30 unit in 500 mls @ 1 mls/hr 07/18/23 15:00 07/18/23 15:20 Pitocin IV 1 milliunit/min .Q24H PATTI 1 mls/hr Administration Protocol 1 MILLIUNIT/MIN Lactated Ringer's 1,000 mls @ 999 mls/hr 07/18/23 19:05 07/18/23 20:15 Lactated Ringers IV 999 mls/hr .Q1H1M PRN Administration See label comments Ropivacaine 100 mg in 50 mls @ 10 mls/hr 07/18/23 19:15 07/18/23 20:34 Naropin Syringe EPIDURAL 10 mls/hr .Q5H PATTI Administration PFSH Anesthesia Medical History Anti-BACON SKIN LIFTER antibodies present Irregular menses No pertinent past medical history Denies diabetes, asthma, hypertension, seizures, DVT/PE PCP: [facility] 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 [place] [facility] [place] History S/P section 11/16/2017-----> primary delivery for arrest of dilation at 6 cm, baby boy Klaus, weighing 8 pounds 15-1/2 ounces. Prominent sacral premon itory, inferior extension---Not a good CHARLIE candidate Family History Family/Other Thyroid condition paternal cousin Diabetes paternal aunt Father Hypertension Hyperlipidemia Grandmother Hypertension paternal Stroke maternal Diabetes paternal Grandfather Stroke maternal Denies family history of Colon cancer Ovarian cancer Heart disease Breast cancer Uterine cancer Social History Substance/Drug Use: unknown Female Reproductive History : 2 Data Anesthesia 07/18/23 04:54 Short CBC 07/18/23 Range/Units 04:54 WBC 13.93 H (3.29-11.43) 10^3/uL Hgb 12.30 (11.27-16.99) g/dL Hct 36.8 (36-47) % MCV 86.8 (85-98) fl Plt Count 250 (157-399) 10^3/cmm Neut % (Auto) 73.2 % Neut # (Auto) 10.18 H (1.8-7.7) 10^3/uL Blood Bank 07/18/23 04:59 Blood Type A Negative Rho(D) Type Negative Antibody Screen Positive Cardiac Studies: No Data to Display
--- NOTE | 2023-07-18 20:32 | P.ANES_ITS ---
Anesthesia Procedures Procedure/Date: 07/18/23 Epidural: Time Out Performed: Yes Consents Signed: Procedure Consent Consent: from patient, risks and benefits reviewed and patient agrees to proceed Lumbar Level: L3-L4 Epidural position: sitting Epidural procedure: sterile prep of area, 1% lidocaine to numb the area, 18 g needle, negative for p aresthesia passed, test dose given, 1.5% xylocaine 1:200k epi, placed PCEA, no systemic response, sterile dressing applied, L.U.D. no apparent complications and 0.2% Ropiavacaine @ mls/hr (10) Additional Comments: SAPNA at 5, negative CSF/blood return. taped at 13 at skin.
[2023-07-18] MEDS: ROPivacaine syringe 100 MG/50 ML SYRINGE 10 MG EPIDURAL (20:34)
[2023-07-18] MEDS: ondansetron 2 mg/ML SDV 2 mL 4 MG IVP (20:39)
--- NOTE | 2023-07-18 21:43 | PM.PN ---
Subjective Subjective: Called by Nursing staff, pt progressed from 3-4cm to 5cm, received Epidural for pain management. EFM with decel with good recovery. Contractions q 1-4 . Vitals/I&O/Wt Last Vital Signs Temp 95.7 F L 07/18/23 21:02 Pulse 83 07/18/23 21:40 Resp 16 07/18/23 16:00 BP 111/67 07/18/23 21:40 Pulse Ox 97 07/18/23 21:39 O2 Del Method Room Air 07/18/23 05:06 07/18/23 07/18/23 07/18/23 06:59 14:59 22:59 Intake Total 915.75 / 915.75 Balance 915.75 / 915.75 Weight last 48 hrs Weight 98.883 kg Data 07/18/23 04:54 A&P Assessment and plan (1) Supervision of normal : (2) History of : Plan Continue CHARLIE , Watch closely. Attestations Medical Necessity Statement*: manage CHARLIE. Coding Level of Care Code Acute Code for Chg Fwd Diagnoses Supervision of normal Z34.90 History of Z98.891
--- NOTE | 2023-07-18 23:50 | P.ANES_ITS ---
Anesthesia Procedures Procedure/Date: 07/18/23 Other Information: BEHAVIORAL INSTRUCTOR at bedside at 1140. bolus given via epidural of 100mcg fentanyl and 5ml 2% lidocaine at 1142.
--- NOTE | 2023-07-18 23:50 | ANES.PROC ---
Anesthesia Procedures Procedure/Date: 07/18/23 Other Information: RIGGING SLINGER at bedside at 1140. bolus given via epidural of 100mcg fentanyl and 5ml 2% lidocaine at 1142.
[2023-07-19] VITALS (191 sets, daily range): BP systolic 95–137; BP diastolic 51–103; PULSE 76–118; RESP 16–18; TEMP 36.5–36.7; O2SAT 86–100
[2023-07-19] MEDS: ROPivacaine syringe 100 MG/50 ML SYRINGE 10 MG EPIDURAL (00:15)
[2023-07-19] MEDS: ampicillin 1,000 MG in sodium chloride 0.9% (plus) 50 ML 100 MG IV ×2 (00:23→12:30)
--- NOTE | 2023-07-19 01:29 | PM.PN ---
Subjective Subjective: Pt doing well, Cx- Anterior lip/90%/0 EFM- decreased variability with episodes of variables. Trial of several pushes, no descent. Epidural discontinued to allow sensation of pressure to assist with pushing. pitocin was discontinued earlier d/t late decels, which resolved. Pt understands. Vitals/I&O/Wt Last Vital Signs Temp 97.4 F L 07/18/23 22:13 Pulse 96 07/19/23 01:26 Resp 16 07/18/23 16:00 BP 102/55 07/19/23 01:26 Pulse Ox 100 07/19/23 01:24 O2 Del Method Room Air 07/18/23 05:06 O2 Flow Rate 10 07/19/23 00:56 07/18/23 07/18/23 07/19/23 14:59 22:59 06:59 Intake Total 915.75 / 915.75 63 / 978.75 Balance 915.75 / 915.75 63 / 978.75 Weight last 48 hrs Weight 98.883 kg Physical Exam Urinary Catheter Management: Russo: Cath Placed During This Visit: yes Urinary Catheter Date of Insertion: 07/18/23 Urinary Catheter Time of Insertion: 21:50 Data 07/18/23 04:54 A&P Assessment and plan (1) Supervision of normal : (2) History of : (3) SROM (spontaneous rupture of membranes): Plan continue care. Attestations Medical Necessity Statement*: management of labor. Coding Level of Care Code Acute Code for Chg Fwd Diagnoses Supervision of normal Z34.90 History of Z98.891 SROM (spontaneous rupture of membranes)
[2023-07-19] MEDS: dextrose 5%-lactated ringers 1,000 ML 125 ML IV ×2 (01:53→12:31)
--- NOTE | 2023-07-19 04:51 | PM.PN ---
Subjective Subjective: 28yo female at 39.2 wk IUP, has progressed to complete /0 has pushed for 2 hrs and vtx fails to descend. Discussed with pt option to continue pushing vs repeat c/s. Pt request repeat section. Risk and benefit reviewed. Will assemble staff. Vitals/I&O/Wt Last Vital Signs Temp 97.4 F L 07/18/23 22:13 Pulse 118 H 07/19/23 04:41 Resp 16 07/18/23 16:00 BP 127/58 07/19/23 04:41 Pulse Ox 95 07/19/23 04:06 O2 Del Method Room Air 07/18/23 05:06 O2 Flow Rate 10 07/19/23 00:56 07/18/23 07/18/23 07/19/23 14:59 22:59 06:59 Intake Total 915.75 / 915.75 1063 / 1977.75 Balance 915.75 / 915.75 1063 / 1977.75 Weight last 48 hrs Weight 98.883 kg Physical Exam Urinary Catheter Management: Russo: Cath Placed During This Visit: yes Urinary Catheter Date of Insertion: 07/18/23 Urinary Catheter Time of Insertion: 21:50 Data 07/18/23 04:54 A&P Assessment and plan (1) Supervision of normal : (2) SROM (spontaneous rupture of membranes): (3) History of : failure to descend after pushing 2 hrs Plan Proceed with Reapeat c/section delivery. Attestations Medical Necessity Statement*: management of labor Coding Level of Care Code Acute Code for Chg Fwd Diagnoses Supervision of normal Z34.90 SROM (spontaneous rupture of membranes) History of Z98.891
[2023-07-19] MEDS: ceFAZolin 2,000 MG in sodium chloride 0.9% (plus) 50 ML 100 MG IV (05:05)
[2023-07-19] MEDS: citric acid-sodium citrate 30 mL UDC PO (05:09)
[2023-07-19] MEDS: metoclopramide 5 mg/mL SDV 2 mL 10 MG IVP (05:10)
[2023-07-19] MEDS: famotidine 20 mg/2 mL INJ IVP (05:10)
--- NOTE | 2023-07-19 06:28 | PM.OP ---
Operative Report Date of procedure: July 19, 2023 Pre-op diagnosis: 39.2 wk IUP Previous C/S Failure to descend Post-op diagnosis: same Post-op findings: normal male OP presentation Procedure done: Repeat LTCS after CHARLIE for at 39.2 wk gestation. Pt pushed after being completely dilated for 2 hrs with vtx at +1 station. The vtx failed to rotate and descend. Pt requestd to be delivered by repeat c/s. Pt prepared and transported to OR, Anesthesia present and Epidural redosed to an adequate level. Pt prepped and draped in standard fashion. Skin testing confirmed adequate level of the Epidural. Incison made thru the previous scar and extended thru the SubQ fat to the Fascia, which was incised and the incison extended laterally. The periteum entered bluntly and a bladder flap created with Mets and pickups and displaced with a bladder blade. A low transverse incision was made in the uterus and extended laterally. The baby boy was noted to be in a ROP presentation but the vertex was very deep in the pelvis and to difficult to deliver so the baby was delivered footling breech. The cord was claamped and baby placed in warmer for Nursing care. He was floppy initially but after stimulation and Delee suctioning, he began to pink up and cry. Cord PH venous and arterial was drawn and handed off as well as cord blood. Pitocin IV solution was stated in bolus and the placenta was manually removed. The uterus was wiped clean and messaged , it firmed quickly. The uterine incision was closed with 0 Vicry in a running interlocking stitch with good hemostasis and approximation. A second 0 vicryl was used to imbricate the first. Good hemostasis was attained. The posterior gutter and side mancuso were cleaned, and uterus replaced in the pelvis. The incision was inspected and noted to be dry. The peritoneum and rectus muscle approximated with 2.0 vicryl. The Fascia approximated with 0 vicryl in a running stitch, followed by the Sub Q with 2.0 vicryl. The skin closed with 4.0 vicryl, cleaned and dressed with a pressure bandage. The uterus and vaginal vault were expressed and cleaned. The uterus palpates firm. Specimens removed/disposition: placenta Surgeon: Rocío Moffett DO Estimated blood loss (mL): 1,000 Urine output: 100cc Complications: none Findings: Viable male 8#10 4/9 Condition: stable Brief History: above under procedure
[2023-07-19] MEDS: lactated ringers 1,000 ML 125 ML IV (07:09)
--- NOTE | 2023-07-19 07:24 | ANE.PACU2 ---
Inpatient post-anesthesia follow up: Airway intact: Yes Vital signs: Temperature 97.4 F Pulse Rate 91 Respiratory Rate 16 Blood Pressure 115/60 Pulse Oximetry 98 Oxygen Delivery Me thod Room Air Oxygen Flow Rate 10 Fraction of Inspir ed Oxygen Hydration adequate: Yes Nausea and vomiting: No Pain level: 2 Mental status: Baseline Additional Comments: Anes start 07/18/232019 Anes end 07/19/23 0600
--- NOTE | 2023-07-19 10:23 | PC.NURSE ---
no decent while pushing/ previous
[2023-07-19] MEDS: ketorolac 30 mg/mL INJ IVP ×2 (13:23→21:42)
[2023-07-19] MEDS: HYDROcodone-acetaminophen 5-325 mg Tablet PO ×2 (15:02→20:34)
[2023-07-19 21:31] LABS: Hematocrit 31.7 % (36-47); Mean Corpuscular HGB Conc 32.5 g/dL (30-55); Mean Corpuscular Hemoglobin 28.9 pg (27-33); Mean Corpuscular Volume 88.8 fl (85-98); Mean Platelet Volume 11.3 fL (7.4-10.4); Platelet Count 252 10^3/cmm (157-399); Red Blood Count 3.57 10^6/uL (3.85-5.65); Red Cell Distribution Width 15.1 % (12.1-15.1); White Blood Count 19.88 10^3/uL (3.29-11.43)
[2023-07-20 03:59] VITALS: BP 98/55; PULSE 81
[2023-07-20] MEDS: HYDROcodone-acetaminophen 5-325 mg Tablet PO ×3 (05:02→19:09)
[2023-07-20] MEDS: ibuprofen 800 mg tablet PO ×3 (08:43→20:48)
[2023-07-20] MEDS: docusate sodium 100 mg Capsule PO ×2 (08:43→19:10)
[2023-07-20] MEDS: prenatal vitamin Capsule 1 CAP PO (08:43)
[2023-07-20 08:46] VITALS: BP 113/65; PULSE 83
--- NOTE | 2023-07-20 11:21 | PM.PN ---
Subjective Subjective: Postop day #1 s/p repeat low-transverse section after CHARLIE . Patient doing well without complaints. Patient denies headaches, blurred vision, shortness of breath, chest pain. She states her bleeding is light denies pelvic pain. Patient has been up ambulating, has voided and is tolerating a regular diet. Vitals/I&O/Wt Last Vital Signs Temp 98.1 F 07/19/23 21:00 Pulse 83 07/20/23 08:46 Resp 17 07/19/23 21:00 BP 113/65 07/20/23 08:46 Pulse Ox 98 07/19/23 21:00 O2 Del Method Room Air 07/19/23 21:00 O2 Flow Rate 10 07/19/23 00:56 07/19/23 07/20/23 07/20/23 22:59 06:59 14:59 Intake Total 500 / 1550 Output Total 1050 / 1100 600 / 1700 Balance -550 / 450 -600 / -150 Physical Exam Back/Pelvis: OTHER: Abdomen?soft, fundus firm. Bandage removed, incision clean dry and intact. Lochia?light Extremity: NARRATIVE EXTREMITY EXAM: No edema, negative Homans' sign. Urinary Catheter Management: Russo: Cath Placed During This Visit: yes, but has since been removed by the nurse Reason for Continuing Indwelling Catheter: Decision to DC Catheter Urinary Catheter Date of Insertion: 07/19/23 Urinary Catheter Time of Insertion: 05:20 Date Urinary Catheter Removed: 07/19/23 Time Urinary Catheter Discontinued: 23:30 Data 07/19/23 20:12 A&P Assessment and plan (1) Supervision of normal : (2) History of : (3) Rh negative status during : (4) Rheumatoid arteritis: Plan Continue present care, possible discharge 07/21/2023. Attestations Medical Necessity Statement*: Postop management. Coding Level of Care Code Acute Code for Chg Fwd Diagnoses Supervision of normal Z34.90 History of Z98.891 Rh negative status during O26.899; Z67.91 Rheumatoid arteritis M05.20
[2023-07-20] MEDS: calcium carbonate 500 mg Chew Tablet 1000 MG PO (15:02)
[2023-07-20 16:45] VITALS: BP 112/60; PULSE 80
[2023-07-20] MEDS: ferrous sulfate EC 325 mg Tablet PO (19:10)
[2023-07-20 20:50] VITALS: BP 124/59; PULSE 93
[2023-07-20 21:00] VITALS: RESP 16; TEMP 36.6
[2023-07-21] MEDS: HYDROcodone-acetaminophen 5-325 mg Tablet PO ×2 (01:58→07:21)
[2023-07-21 05:28] VITALS: BP 102/59; PULSE 85
--- NOTE | 2023-07-21 06:42 | P.DS_ITS ---
Discharge Providers DRY PRESS OPERATOR HELPER Date of Admission: 07/18/23 04:34 Date of Discharge: 07/21/23 Attending Provider at Admission: Rosalio Nicolas MD Attending Provider at Discharge: Rosalio Nicolas MD Primary Care Provider: [place]ia Rivers DO Diagnoses at Discharge Discharge Diagnosis (1) Supervision of normal : Status: Acute (2) History of : Status: Acute (3) Rh negative status during : Status: Acute (4) Rheumatoid arteritis: Status: Acute Permanent problem details: /Mixed connective tissue disorder----diagnosed in December 2021 and she is under the care of industrial illuminating engineer Dr. Riggins [place] [facility] [place] Reason for Visit Reason for Visit: possible rupture of membranes Hospital Course Hospital Course 28-year-old G2, P2 s/p repeat low-transverse section after trial of labor. Patient's labor progressed to complete dilatation but failed to descend past 0 station. Patient is without complaints, is tolerating regular diet, voiding and ambulating without difficulty. She has passed flatus and a spontaneous stool. Patient is breast-feeding and plans to pump and bottle feed at home. Discharge orders and expectations have been reviewed with patient no heavy lifting pushing pulling no sex douching or tampons x6 weeks. Patient is to continue with increased fluids, and a high-fiber diet. Patient is encouraged to continue her vitamins which she has at home. Pain medication has been reviewed patient is to continue with ibuprofen and Tylenol as needed. VSS, afebrile Abdomen?soft, fundus firm, incision clean dry and intact. Lochia?light Extremities?no edema negative Homans' sign Information Peripartum Data: Delivery Method: Physical Exam Urinary Catheter Management: Russo: Cath Placed During This Visit: yes, but has since been removed by the nurse Reason for Continuing Indwelling Catheter: Decision to DC Catheter Urinary Catheter Date of Insertion: 07/19/23 Urinary Catheter Time of Insertion: 05:20 Date Urinary Catheter Removed: 07/19/23 Time Urinary Catheter Discontinued: 23:30 History History History 2 Term 1 0 Miscarriages/Ectopic 0 Living Children 1 Discharge Data Studies Completed and Pending Laboratory Results WBC 19.88 10^3/uL (3.29-11.43) H 07/19/23 20:12 RBC 3.57 10^6/uL (3.85-5.65) L 07/19/23 20:12 Hgb 10.30 g/dL (11.27-16.99) L 07/19/23 20:12 Hct 31.7 % (36-47) L 07/19/23 20:12 MCV 88.8 fl (85-98) 07/19/23 20:12 MCH 28.9 pg (27-33) 07/19/23 20:12 MCHC 32.5 g/dL (30-55) 07/19/23 20:12 RDW 15.1 % (12.1-15.1) 07/19/23 20:12 Plt Count 252 10^3/cmm (157-399) 07/19/23 20:12 MPV 11.3 fL (7.4-10.4) H 07/19/23 20:12 Neut % (Auto) 73.2 % 07/18/23 04:54 Lymph % (Auto) 18.0 % 07/18/23 04:54 [place] % (Auto) 5.2 % 07/18/23 04:54 Eos % (Auto) 1.0 % 07/18/23 04:54 Baso % (Auto) 0.4 % 07/18/23 04:54 Neut # (Auto) 10.18 10^3/uL (1.8-7.7) H 07/18/23 04:54 Lymph # (Auto) 2.5 10^3/uL (0.8-4.8) 07/18/23 04:54 [place] # (Auto) 0.7 10^3/uL (0.2-0.9) 07/18/23 04:54 Eos # (Auto) 0.1 10^3/uL (0.0-0.8) 07/18/23 04:54 Baso # (Auto) 0.1 10^3/uL (0.0-0.1) 07/18/23 04:54 Nucleated RBC % (auto) 0 % 07/18/23 04:54 Nucleated RBCs # 0.0 /100WBC 07/18/23 04:54 Fluid pH (paper) Positive H 07/18/23 04:00 Urine Opiates Screen Negative ng/mL (Negative) 07/18/23 03:15 Ur Barbiturates Screen Negative ng/mL (Negative) 07/18/23 03:15 Ur Phencyclidine Scrn Negative ng/mL (Negative) 07/18/23 03:15 Ur Amphetamines Screen Negative ng/mL (Negative) 07/18/23 03:15 U Benzodiazepines Scrn Negative ng/mL (Negative) 07/18/23 03:15 Urine Cocaine Screen Negative ng/mL (Negative) 07/18/23 03:15 U Marijuana (THC) Screen Negative ng/mL (Negative) 07/18/23 03:15 Blood Type A Negative 07/18/23 04:59 Rho(D) Type Negative 07/18/23 04:59 Antibody Screen Positive 07/18/23 04:59 Antibody Identification Anti-D 07/18/23 04:59 Vitals Last Vital Signs Temp 97.9 F 07/20/23 21:00 Pulse 85 07/21/23 05:28 Resp 16 07/20/23 21:00 BP 102/59 07/21/23 05:28 Pulse Ox 98 07/19/23 21:00 O2 Del Method Room Air 07/19/23 21:00 O2 Flow Rate 10 07/19/23 00:56 Results Labs OB ([facility]): Obstetrics US 03/07/23 Blood Type A Negative 07/18/23 Antibody Screen Positive 07/18/23 Hct 31.7 % (36-47) L 07/19/23 Hgb 10.30 g/dL (11.27-16.99) L 07/19/23 Rho(D) Type Negative 07/18/23 Plt Count 252 10^3/cmm (157-399) 07/19/23 Hep Bs Antigen Non-reactive (Nonreactive) 12/12/22 Hep B Core Total Ab Non-reactive (Nonreactive) 12/13/21 Hepatitis C Antibody Non-reactive (Nonreactive) 12/12/22 Rubella IgG Antibody 67.3 IU/mL (0.0-10.0) H 12/12/22 TSH 1.70 uIU/mL (0.27-4.20) 12/12/22 Cystic Fibrosis Screen Positive 01/09/23 Urine Protein Negative (Negative) 07/17/23 Urine Glucose (UA) Negative (Normal) 07/17/23 Gest Glucose Tolerance 101 mg/dL 05/02/23 Hemoglobin A1c 4.8 % (4.0-6.0) 10/05/22 Discharge Plan Discharge Patient Disposition: Home Condition: Stable Prescriptions: No Action Zyrtec 10 mg capsule 10 mg PO DAILY acetaminophen [Tylenol Extra Strength] 500 mg tablet 500 mg PO BID PRN [id number] oil-vit D3 [[place]-3 + Vitamin D3] PO collagen pep PO Hair,Skin and Nails Tablet 1 tab PO DAILY diclofenac sodium [Arthritis Pain (diclofenac)] 1 % gel 4 g topical QID Qty: 100 2RF Rx Instructions: apply to single knee, ankle, foot; for foot includes sole/toes/top of foot methylprednisolone [Medrol (Suraj)] 4 mg tablets,dose pack 4 mg PO DAILY Qty: 21 0RF RhoGAM Ultra-Filtered PLUS 1,500 unit (300 mcg) syringe 300 mcg IM ONCE Qty: 1 0RF RhoGAM Ultra-Filtered PLUS 1,500 unit (300 mcg) syringe 1,500 unit IM ONCE Qty: 1 0RF folic acid 1 mg tablet 1 mg PO DAILY Qty: 90 1RF hydroxychloroquine 200 mg tablet 200 mg PO BID Qty: 60 3RF Discharge Orders: Discharge Order (Routine); Ordered 07/21/23 Ordered By: Rocío Moffett Discharge Diet: Regular Discharge Activity: Increase activity as tolerated Patient Instructions: Opioid Safety Activity Restrictions/Additional Instructions: No strenuous activities patient to avoid sexual intercourse x6 weeks. Patient to shower daily keeping incision clean dry. Assessment: S/p repeat low-transverse section Plan of Treatment: Discharge to home Patient to call clinic and schedule a follow-up appointment for 2 weeks. Discharge Attestations DRY PRESS OPERATOR HELPER Time Spent in Discharge Care*: less than 30 min Coding Level of Care Code Acute Code for Chg Fwd Diagnoses Supervision of normal Z34.90 History of Z98.891 Rh negative status during O26.899; Z67.91 Rheumatoid arteritis M05.20
[2023-07-21] MEDS: prenatal vitamin Capsule 1 CAP PO (09:19)
[2023-07-21] MEDS: ibuprofen 800 mg tablet PO (09:20)
[2023-07-21] MEDS: docusate sodium 100 mg Capsule PO (09:20)
[2023-07-21] MEDS: ferrous sulfate EC 325 mg Tablet PO (09:20)
[2023-07-21 09:23] VITALS: BP 136/85; PULSE 101
[2023-07-21 09:26] VITALS: RESP 16; TEMP 36.6
[2023-07-21 10:31] VITALS: BP 130/56; PULSE 85
[2023-07-21 10:46] VITALS: BP 130/56; PULSE 85
== END 2023-07-21 10:46 | disposition home or self-care (01) | DRG 787 ==
LOC: OPOB 04:36 → OBGYN 04:36
PROVIDERS: Obstetrics & Gynecology; Admitting Provider Obstetrics & Gynecology; PCP Family Medicine; Visit Provider Obstetrics & Gynecology
PROC: 10D00Z1 Extraction of Products of Conception, Low, Open Approach (ICD-10-PCS; CPT 59514; principal; 2023-07-19 05:15)
DX: O34.211 Maternal care for low transverse scar from previous cesarean delivery (principal); O36.0930 Maternal care for other rhesus isoimmunization, third trimester, not applicable or unspecified; Z3A.39 39 weeks gestation of pregnancy; Z37.0 Single live birth; O75.89 Other specified complications of labor and delivery; M06.9 Rheumatoid arthritis, unspecified; O76 Abnormality in fetal heart rate and rhythm complicating labor and delivery; O32.4XX0 Maternal care for high head at term, not applicable or unspecified; O32.8XX0 Maternal care for other malpresentation of fetus, not applicable or unspecified
CPT/HCPCS: 36415; 51702; 59409; 80306; 80503; 83986; 85025; 85027; 86850; 86870; 86900; 96374; 96376; J0290; J0690; J1885; J2405; J2590; J2765; J2795; J3010; J3490; J7120; J7121

== ENCOUNTER → 2023-10-25 11:21 | Outpatient (BNVA) | payer OTHER, SELFPAY | PROVIDERS: PCP Family Medicine; Visit Provider Internal Medicine | DX: M35.7 Hypermobility syndrome (principal); M05.20 Rheumatoid vasculitis with rheumatoid arthritis of unspecified site | CPT/HCPCS: 80053; 85025; 85651; 86140; 86480 ==

== ENCOUNTER → 2023-11-21 09:25 | Outpatient (BNVA) | payer MEDICAID, SELFPAY | PROVIDERS: PCP Family Medicine; Visit Provider Nurse Practitioner Women's Health | DX: N93.9 Abnormal uterine and vaginal bleeding, unspecified (principal); N92.0 Excessive and frequent menstruation with regular cycle; Z79.899 Other long term (current) drug therapy | CPT/HCPCS: 82607; 82728; 82746; 83550; 85025 ==

== ENCOUNTER 2024-02-27 13:06 | Outpatient (CLI) | payer OTHER, SELFPAY ==
[2024-02-27 13:38] LABS: Basophils # 0.1 10^3/uL (0.0-0.1); Basophils % 0.6 %; Eosinophils # 0.4 10^3/uL (0.0-0.8); Eosinophils % 4.1 %; Hematocrit 40.1 % (36-47); Lymphocytes # 2.6 10^3/uL (0.8-4.8); Lymphocytes % 25.7 %; Mean Corpuscular HGB Conc 33.4 g/dL (30-55); Mean Corpuscular Hemoglobin 29.2 pg (27-33); Mean Corpuscular Volume 87.4 fl (85-98); Monocytes # 0.5 10^3/uL (0.2-0.9); Monocytes % 4.8 %; Neutrophils # 6.48 10^3/uL (1.8-7.7); Neutrophils % 64.4 %; Nucleated Red Blood Cells % 0 %; Platelet Count 291 10^3/cmm (157-399); Red Blood Count 4.59 10^6/uL (3.85-5.65); White Blood Count 10.06 10^3/uL (3.29-11.43)
[2024-02-27 13:55] LABS: Alanine Aminotransferase < 5 U/L (0-33); Albumin Level 4.1 g/dL (3.5-5.2); Alkaline Phosphatase 77 U/L (35-105); Aspartate Amino Transferase 12 U/L (0-32); Glomerular Filtration Rate 145.9 mL/min (90-130); Total Bilirubin 0.2 mg/dL (0.15-1.2); Total Protein 7.1 g/dL (6.6-8.7)
[2024-02-27 14:07] LABS: Erythrocyte Sedimentation Rate 8 mm/hr (0-15)
== END 2024-02-27 13:07 | disposition home or self-care (01) ==
LOC: LAB 13:08
PROVIDERS: PCP Family Medicine; Visit Provider Internal Medicine Rheumatology
DX: M05.20 Rheumatoid vasculitis with rheumatoid arthritis of unspecified site (principal); Z79.899 Other long term (current) drug therapy
CPT/HCPCS: 36415; 80076; 82565; 85025; 85651; 86140

== ENCOUNTER → 2024-07-13 14:22 | Outpatient (BNVA) | payer MEDICAID, SELFPAY | PROVIDERS: PCP Family Medicine; Visit Provider Internal Medicine Rheumatology | DX: Z79.899 Other long term (current) drug therapy (principal); M05.79 Rheumatoid arthritis with rheumatoid factor of multiple sites without organ or systems involvement | CPT/HCPCS: 36415; 80076; 82565; 85025; 85651; 86140 ==

== ENCOUNTER 2024-10-15 09:28 | Outpatient (CLI) | payer MEDICAID, SELFPAY ==
--- NOTE | 2024-10-15 09:35 | XR_ITS ---
WS: [id number] Right leg including the tibia and fibula, AP and lateral views, 10/15/2024 Clinical Data: M89.8X6 - Other specified disorders of bone, lower leg Comparison: None. Findings: No fractures or dislocations are seen. The tibia and fibula are intact. The soft tissues are normal. XR/XR tibia fibula RT 2V [id number] Impression: Negative right leg.
--- NOTE | 2024-10-15 09:35 | XR_ITS ---
WS: [id number] Left leg including the tibia and fibula, AP and lateral views, 10/15/2024 Clinical Data: M89.8X6 - Other specified disorders of bone, lower leg Comparison: None. Findings: No fractures or dislocations are seen. The tibia and fibula are intact. The soft tissues are normal. XR/XR tibia fibula LT 2V [id number] Impression: Negative left leg.
== END 2024-10-15 09:29 | disposition home or self-care (01) ==
LOC: RAD 09:30
PROVIDERS: PCP Family Medicine; Visit Provider Family Medicine
DX: M89.8X6 Other specified disorders of bone, lower leg (principal)
CPT/HCPCS: 73590

== ENCOUNTER 2024-11-06 15:31 | Outpatient (CLI) | payer MEDICAID, SELFPAY ==
--- NOTE | 2024-11-06 15:39 | XR_ITS ---
WS: [id number] SACRUM AND COCCYX TECHNIQUE: AP angled and lateral views. HISTORY: PAIN IN COCCYX COMPARISON: None available. No fracture or malalignment. Visualized bony structures are unremarkable. XR/XR sacrum coccyx min 2V [id number] IMPRESSION: Negative sacrum and coccyx.
== END 2024-11-06 15:32 | disposition home or self-care (01) ==
LOC: RAD 15:35
PROVIDERS: PCP Family Medicine; Visit Provider Family Medicine
DX: M53.3 Sacrococcygeal disorders, not elsewhere classified (principal)
CPT/HCPCS: 72220

== ENCOUNTER → 2025-01-11 14:09 | Outpatient (BNVA) | payer MEDICAID, SELFPAY | PROVIDERS: PCP Family Medicine; Visit Provider Internal Medicine Rheumatology | DX: M05.79 Rheumatoid arthritis with rheumatoid factor of multiple sites without organ or systems involvement (principal); R76.8 Other specified abnormal immunological findings in serum; Z79.899 Other long term (current) drug therapy; Z71.85 Encounter for immunization safety counseling | CPT/HCPCS: 36415; 80076; 82085; 82550; 82565; 85025; 85651; 86140; 99214 ==

== ENCOUNTER → 2025-01-14 14:45 | Outpatient (BNVA) | payer MEDICAID, SELFPAY | PROVIDERS: PCP Family Medicine; Visit Provider Orthopaedic Surgery | DX: M54.9 Dorsalgia, unspecified (principal) | CPT/HCPCS: 72110 ==

== ENCOUNTER 2025-02-04 08:38 | Outpatient (CLI) | payer MEDICAID, SELFPAY ==
--- NOTE | 2025-02-04 08:45 | MR_ITS ---
WS: [id number] MRI RIGHT lower leg INDICATION: Farfan pain TECHNIQUE: Coronal T1 sagittal STIR sagittal T1 axial PD axial T2 coronal STIR imaging FINDINGS: Normal bone marrow signal in the tibia. Normal bone marrow signal in the fibula. No bone marrow edema. No visualized fractures. Normal visualized soft tissues. No cystic or solid lesions. No suspicious findings. MR/MR lower leg RT wo con* [id number] IMPRESSION: Normal lower extremity
--- NOTE | 2025-02-04 09:30 | MR_ITS ---
WS: [id number] MRI LEFT lower leg INDICATION: Farfan pain TECHNIQUE: Coronal T1 sagittal STIR sagittal T1 axial PD axial T2 coronal STIR imaging FINDINGS: Normal bone marrow signal in the tibia. Normal bone marrow signal in the fibula. No bone marrow edema. No visualized fractures. Normal visualized soft tissues. No cystic or solid lesions. No suspicious findings. MR/MR lower leg LT wo con* [id number] IMPRESSION: Normal lower extremity
== END 2025-02-04 08:39 | disposition home or self-care (01) ==
PROVIDERS: PCP Family Medicine; Visit Provider Internal Medicine Rheumatology
DX: M79.606 Pain in leg, unspecified (principal)
CPT/HCPCS: 73718

== ENCOUNTER → 2025-05-10 16:55 | Outpatient (BNVA) | payer MEDICAID, SELFPAY | PROVIDERS: PCP Family Medicine; Visit Provider Internal Medicine Rheumatology | DX: Z79.899 Other long term (current) drug therapy (principal); M05.79 Rheumatoid arthritis with rheumatoid factor of multiple sites without organ or systems involvement; R76.8 Other specified abnormal immunological findings in serum; Z71.85 Encounter for immunization safety counseling | CPT/HCPCS: 36415; 80076; 82306; 82565; 85025; 85651; 86140; 86480 ==